=== PATIENT | female | born 1995 | race Caucasian/White ===

== ENCOUNTER 2018-12-13 15:10 | Emergency (ER) | payer OTHER ==
--- NOTE | 2018-12-13 15:38 | ED ---
Palpitations / Dysrhythmia - HPI Summary HPI Summary: This pt is a 23 y/o female presenting to [facility] c/o palpitations today. Pt reports her palpitations began about 1 hour [employer]IL[employer] COORDINATOR around 14:15. She describes palpitations as beating irregularly and pounding. Denies nausea, vomiting, diarrhea, chest pain, SOB. Pt drinks one cup of coffee a day. Denies drinking any energy drinks. Pt called her PCP today and was advised to come to the ED. LMP: currently on it now. She does not take any contraceptive pills. Denies any PMHx. Denies tobacco, alcohol, and drug use. FHx of mother with PVCs. Pt and mother are both declining a chest XR. - History of Current Complaint Chief Complaint: EDDysrhythmPalp Time Seen by Provider: 12/13/18 15:34 Hx Obtained From: Patient Onset/Duration: Lasting Days, Still Present Timing: Constant Severity Currently: Mild Character: Irregular, Pounding Aggravating: Nothing Alleviating: Nothing Associated Signs & Symptoms: Negative - Allergy/Home Medications Allergies/Adverse Reactions: Allergies Allergy/AdvReac Type Severity Reaction Status Date / Time No Known Allergies Allergy Verified 12/13/18 15:12 Home Medications: Home Medications Sertraline* [Zoloft*] 75 mg PO BEDTIME 12/13/18 [History Confirmed 12/13/18] PMH/Surg Hx/FS Hx/Imm Hx Endocrine/Hematology History: Denies: Hx Diabetes Cardiovascular History: Denies: Hx Hypertension - Surgical History Surgery Procedure, Year, and Place: None Infectious Disease History: No Infectious Disease History: Denies: Traveled Outside the [place] in Last 30 Days - Family History Known Family History: Positive: Cardiac Disease - Mother with PVCs - Social History Alcohol Use: None Substance Use Type: Reports: None Smoking Status (MU): Never Smoked Tobacco Review of Systems Negative: Fever Positive: Palpitations. Negative: Chest Pain Negative: Shortness Of Breath Negative: Vomiting, Diarrhea, Nausea All Other Systems Reviewed And Are Negative: Yes Physical Exam - Summary Physical Exam Summary: VITAL SIGNS: Reviewed. GENERAL: Patient is a well-developed and nourished female who is lying comfortable in the stretcher. Patient is not in any acute respiratory distress. HEAD AND FACE: No signs of trauma. No ecchymosis, hematomas or skull depressions. No sinus tenderness. EYES: PERRLA, EOMI x 2, No injected conjunctiva, no nystagmus. EARS: Hearing grossly intact. Ear canals and tympanic membranes are within normal limits. MOUTH: Oropharynx within normal limits. NECK: Supple, trachea is midline, no adenopathy, no JVD, no carotid bruit, no c- spine tenderness, neck with full ROM. CHEST: Symmetric, no tenderness at palpation LUNGS: Clear to auscultation bilaterally. No wheezing or crackles. CVS: Regular rate and rhythm, S1 and S2 present, no murmurs or gallops appreciated. ABDOMEN: Soft, non-tender. No signs of distention. No rebound no guarding, and no masses palpated. Bowel sounds are normal. EXTREMITIES: FROM in all major joints, no edema, no cyanosis or clubbing. NEURO: Alert and oriented x 3. No acute neurological deficits. Speech is normal and follows commands. SKIN: Dry and warm Triage Information Reviewed: Yes Vital Signs On Initial Exam: Initial Vitals Temp Pulse Resp BP Pulse Ox 98.3 F 73 16 139/82 100 12/13/18 15:12 12/13/18 15:12 12/13/18 15:12 12/13/18 15:12 12/13/18 15:12 Vital Signs Reviewed: Yes Diagnostics - Vital Signs Vital Signs Temp Pulse Resp BP Pulse Ox 12/13/18 15:12 98.3 F 73 16 139/82 100 - Laboratory Result Diagrams: 12/13/18 16:01 12/13/18 16:01 Lab Statement: Any lab studies that have been ordered have been reviewed, and results considered in the medical decision making process. - EKG 16:04 Cardiac Rate: NL - at 69 bpm EKG Rhythm: Sinus Rhythm Summary of EKG Findings: No ST elevations. Normal EKG. Re-Evaluation - Re-Evaluation First Eval Re-Evaluation Time: 18:14 Comment: Reviewed results with pt and mother. Pt will be discharged home. Course/Dx - Course Assessment/Plan: Patient is a 23-year-old female who presents to the emergency department with the chief complaint of palpitations. Test results without any significant abnormality except for potassium at 3.4 for which the patient was given potassium chloride by mouth. EKG shows a normal sinus rhythm without any ST elevations. Patient declined the chest x-ray. I discussed the findings and test results with the patient and the need to follow-up with primary care physician. I believe that the patient would benefit from a Holter monitor. I discussed all the findings and test results with the patient. Patient was instructed to return to the emergency room immediately if any of the symptoms return worsens. Plan of care was discussed with the patient and understands and agrees. All questions were answered at patient satisfaction. There were no further complaints or concerns. Lung exam before discharge: CTA B/L. Good air exchange. No wheezing or crackles heard. CVS: S1 and S2 present. No murmurs appreciated. Patient is alert and oriented x 3. Patient is hemodynamically stable. Patient will be discharged home with follow up from her PCP in the next 2-3 days. - Diagnoses Provider Diagnoses: Palpitations Discharge - Sign-Out/Discharge Documenting (check all that apply): Patient Departure - Discharge home Patient Received Moderate/Deep Sedation with Procedure: No - Discharge Plan Condition: Stable Disposition: HOME Patient Education Materials: Heart Palpitations (ED) Referrals: Dee Prakash DO [Primary Care Provider] - Additional Instructions: FOLLOW UP WITH YOUR PRIMARY CARE PROVIDER IN 2-3 DAYS. RETURN TO THE EMERGENCY DEPARTMENT FOR ANY WORSENING OR NEW SYMPTOMS. - Billing Disposition and Condition Condition: STABLE Disposition: Home - Attestation Statements Document Initiated by Yasmin: Yes Documenting Chuyibe: Norma Leija Provider For Whom Yasmin is Documenting (Include Credential): Josesito Hernandez MD Scribe Attestation: Norma Flood scribed for Josesito Hernandez MD on 12/13/18 at 1832. Scribe Documentation Reviewed: Yes Provider Attestation: The documentation as recorded by the Norma rock accurately reflects the service I personally performed and the decisions made by me, Josesito Hernandez MD Status of Scribe Document: Viewed
[2018-12-13 16:16] LABS: ABS Basophils 0.1 10^3/ul (0-0.2); ABS Eosinophils 0.1 10^3/ul (0-0.6); ABS Lymphocytes 1.6 10^3/ul (1.0-4.8); ABS Monocytes 0.4 10^3/ul (0-0.8); ABS Neutrophils 2.7 10^3/ul (1.5-7.7); ABS Nucleated RBC 0 10^3/ul; Eosinophil % 1.4 %; Hematocrit 36 % (33-41); Hemoglobin 12.1 g/dL (12.0-16.0); Lymphocyte % 33.5 %; Mean Corpuscular HGB Conc 34 g/dL (31-36); Mean Corpuscular Hemoglobin 29 pg (27-31); Mean Corpuscular Volume 87 fL (80-97); Mean Platelet Volume 10.5 fL (7.4-10.4); Nucleated Red Blood Cells % 0; Platelet Count 148 10^3/uL (150-450); Red Blood Count 4.13 10^6 /uL (3.70-4.87); Red Cell Distribution Width 13 % (10.5-15); White Blood Count 4.8 10^3/uL (3.5-10.8)
[2018-12-13 16:52] LABS: Albumin 4.5 g/dL (3.2-5.2); Albumin/Globulin Ratio 2.3 (1-3); BUN/Creatinine Ratio 16.4 (8-20); Calcium 9.2 mg/dL (8.6-10.3); EGFR Non-African American 109.1 (>60); Potassium 3.4 mmol/L (3.5-5.0); Total Bilirubin 0.4 mg/dL (0.2-1.0); Total Protein 6.5 g/dL (6.4-8.9)
[2018-12-13 17:10] LABS: TSH (Thyroid Stimulating Horm) 0.92 mcIU/mL (0.34-5.60)
[2018-12-13] MEDS ORDERED: Potassium Chlor TAB* 20 MEQ TAB.ER PO ONE (17:10)
[2018-12-13 18:45] VITALS: BP 108/65
== END 2018-12-13 18:45 | disposition home or self-care (01) ==
LOC: ED 15:10
DX: R00.2 Palpitations (principal); E87.6 Hypokalemia; Z82.49 Family history of ischemic heart disease and other diseases of the circulatory system
CPT/HCPCS: 36415; 80053; 83605; 83735; 84443; 84484; 85025; 93005; 99283; A9270-GY